=== PATIENT | female | born 1945 | race Caucasian/White ===

== ENCOUNTER 2016-12-24 11:07 | Emergency (ER) | payer OTHER, BC ==
[~2016-12-24] VITALS: Ht 157.5 cm; Wt 82.1 kg
[~2016-12-24 11:07] MED LIST: ATOR10TA88 PO; ESCI1TAB10 PO; MULT-506 PO; NXM/40 PO; OXYC1TAB3 PO
[2016-12-24 11:22] VITALS: TEMP 37
[2016-12-24] MEDS ORDERED: MECLIZINE HCL 25 MG TAB PO STA (11:36)
--- NOTE | 2016-12-24 11:49 | EMERGENCY ROOM VISIT NOTE ---
History Report prepared by Rehana: Brenda Newsome Under the Supervision of: Dr. Parveen Drake D.O. First contact with patient: 11:27 Chief Complaint: HEADACHE Stated Complaint: HUA, DIZZY, SHAKINESS IN STOMACH History of Present Illness The patient is a 71 year old female who presents to the Emergency Room with complaints of a persistent headache that began several days ago. The patient describes her headache as a squeezing headache. The patient states that in November she developed a head-cold that then traveled into her chest. She states that she was seen at [facility] two weeks ago and was placed on Tetracycline and Zinc Lozenges. The patient states that she had had dizziness at that time but thought it was related to her antibiotic usage. She states that she ended her antibiotics on and states that her dizziness worsened. The patient states that she first would notice her dizziness later in the day, but states that now she is experiencing it as soon as she wakes. She states that she has been experiencing nervousness and jitteriness. The patient reports a history of migraines, but states that her headache and symptoms feel different than her previous migraines. She states that she was evaluated at [facility] again yesterday and had a normal EKG and normal orthostatic vital signs. The patient states that [facility] suggested that she come to the emergency department last evening but she decided not to. She states that she does follow with Cardiology every 6 months for a heart murmur. The patient states that since her dizziness worsened this morning she felt she should come in to the emergency department for further evaluation and treatment. She states that she has been using Flonase, thinking that she may have had sinus congestion. The patient reports a history of sinus issues, but denies any history of vertigo. She states that she always experiences ringing in her ears. The patient denies any chest pain, abdominal pain, or vomiting. Source of History: patient Onset: several days ago Position: head Quality: other (squeezing) Timing: other (persistent) Associated Symptoms: No chest pain, No vomiting, No abdominal pain Note: Associated Symptoms: dizziness, nervousness, jitteriness Review of Systems See HPI for pertinent positives & negatives. A total of 10 systems reviewed and were otherwise negative. Past Medical & Surgical Medical Problems: (1) Dodson's palsy (2) Bronchitis (3) Heart murmur (4) Melanoma (5) Pneumonia Surgical Problems: (1) H/O dilation and curettage (2) H/O foot surgery (3) History of appendectomy (4) History of tonsillectomy Family History Cancer Diabetes mellitus Gallbladder disease Heart disease Liver disease Social History Smoking Status: Former Smoker Smokeless Tobacco Use: No Alcohol Use: occasionally Marital Status: Housing Status: lives with significant other Occupation Status: retired Current/Historical Medications Scheduled Ascorbic Acid (Ascorbic Acid), 500 MG PO DAILY Biotin (Biotin), 5,000 MCG PO DAILY Cholecalciferol (Vitamin D3), 2,000 UNITS PO DAILY Choline Fenofibrate (Fenofibric Acid Dr), 135 MG PO QAM Cyanocobalamin (Vitamin B-12), 1,000 MCG PO DAILY Dexlansoprazole (Dexilant), 60 MG PO DAILY Fish Oil ([place] [address]-3), 1,200 MG PO DAILY Linaclotide (Linzess), 145 MCG PO DAILY Magnesium Oxide (Mg Supplement (Magnesium), 500 MG PO DAILY Multiple Vitamins W/ Minerals (Centrum Silver 50+Women), 1 TAB PO DAILY Ropinirole (Requip), 1 MG PO HS Simvastatin (Zocor), 20 MG PO QPM Temazepam (Restoril), 15 MG PO HS Scheduled PRN Meclizine Hcl (Meclizine Hcl), 1 TAB PO TID PRN for Dizziness or Vertigo Miscellaneous Medications Acetaminophen (Tylenol), 500 MG PO Allergies Coded Allergies: Niacin (Unverified Allergy, Unknown, flushed/hot, 12/24/16) Physical Exam Vital Signs Date Time Temp Pulse Resp B/P (MAP) Pulse Ox O2 Delivery O2 Flow Rate FiO2 12/24/16 13:57 60 18 139/80 100 Room Air 12/24/16 12:00 56 12/24/16 11:59 97 Room Air 12/24/16 11:59 65 16 143/79 97 Room Air 68 143/78 76 132/74 12/24/16 11:22 37.0 72 20 109/68 97 Room Air Physical Exam GENERAL: Patient is awake, alert, and in no acute distress. Patient is resting comfortably and showing no signs of anxiety EYES: The conjunctivae are clear. The pupils are round and reactive. EARS, NOSE, MOUTH AND THROAT: The nose is without any evidence of any deformity. Mucous membranes are moist tongue is midline NECK: The neck is nontender and supple. RESPIRATORY: Normal respiratory effort is noted there is no evidence of wheezing rhonchi or rales CARDIOVASCULAR: Regular rate and rhythm noted, systolic murmur was appreciated. GASTROINTESTINAL: The abdomen is soft. Bowel sounds are present in all quadrants. Abdomen is nontender MUSCULOSKELETAL/EXTREMITIES: There is no evidence of gross deformity full range of motion is noted in the hips and shoulders SKIN: There is no obvious evidence of any rash. There are no petechiae, pallor or cyanosis noted. NEUROLOGIC: Patient is awake alert and oriented x3 strength is symmetric patellar reflexes are 2+ bilaterally Medical Decision & Procedures ER Provider Diagnostic Interpretation: Radiology results as stated below per my review and radiologist interpretation: HEAD WITHOUT CONTRAST (CT) CT DOSE: 679.75 mGycm HISTORY: Mental status change EVALUATE ALTERED MENTAL STATUS/WEAKNESS TECHNIQUE: Multiaxial CT images of the head were performed without the use of intravenous contrast. A dose lowering technique was utilized adhering to the principles of ALARA. Comparison: None. Findings: The paranasal sinuses and mastoid air cells are clear. The calvarium and skull base are intact. The ventricles and sulci are within normal limits. There is no mass, hematoma, midline shift, or acute infarct. Impression: No acute intracranial abnormality. The above report was generated using voice recognition software. It may contain grammatical, syntax or spelling errors. Electronically signed by: Messi Reece M.D. 12/24/2016 12:26 PM Dictated Date/Time: 12/24/2016 12:24 PM CHEST ONE VIEW PORTABLE CLINICAL HISTORY: Altered mental status. Weakness. Headache. COMPARISON STUDY: No previous studies for comparison. FINDINGS: The heart is mildly enlarged. There is no focal pulmonary consolidation. There is no overt failure. There are no pleural effusions.[ IMPRESSION: No active disease in the chest. Electronically signed by: Mukund Faith M.D. 12/24/2016 12:16 PM Dictated Date/Time: 12/24/2016 12:15 PM Laboratory Results 12/24/16 11:46 Red Blood Count 3.74, Mean Corpuscular Volume 89.6, Mean Corpuscular Hemoglobin 29.1, Mean Corpuscular Hemoglobin Concent 32.5, Mean Platelet Volume 11.1, Neutrophils (%) (Auto) 45.7, Lymphocytes (%) (Auto) 38.1, Monocytes (%) (Auto) 11.9, Eosinophils (%) (Auto) 3.1, Basophils (%) (Auto) 0.9, Neutrophils # (Auto ) 2.64, Lymphocytes # (Auto) 2.20, Monocytes # (Auto) 0.69, Eosinophils # (Auto ) 0.18, Basophils # (Auto) 0.05 12/24/16 11:46 Test 12/24/16 11:46 12/24/16 12:32 White Blood Count 5.78 K/uL (4.8-10.8) Red Blood Count 3.74 M/uL (4.2-5.4) Hemoglobin 10.9 g/dL (12.0-16.0) Hematocrit 33.5 % (37-47) Mean Corpuscular Volume 89.6 fL (80-100) Mean Corpuscular Hemoglobin 29.1 pg (25-34) Mean Corpuscular Hemoglobin Concent 32.5 g/dl (32-36) Platelet Count 177 K/uL (130-400) Mean Platelet Volume 11.1 fL (7.4-10.4) Neutrophils (%) (Auto) 45.7 % Lymphocytes (%) (Auto) 38.1 % Monocytes (%) (Auto) 11.9 % Eosinophils (%) (Auto) 3.1 % Basophils (%) (Auto) 0.9 % Neutrophils # (Auto) 2.64 K/uL (1.4-6.5) Lymphocytes # (Auto) 2.20 K/uL (1.2-3.4) Monocytes # (Auto) 0.69 K/uL (0.11-0.59) Eosinophils # (Auto) 0.18 K/uL (0-0.5) Basophils # (Auto) 0.05 K/uL (0-0.2) RDW Standard Deviation 47.2 fL (36.4-46.3) RDW Coefficient of Variation 14.4 % (11.5-14.5) Immature Granulocyte % (Auto) 0.3 % Immature Granulocyte # (Auto) 0.02 K/uL (0.00-0.02) Prothrombin Time 10.4 SECONDS (9.0-12.0) Prothromb Time International Ratio 1.0 (0.9-1.1) Activated Partial Thromboplast Time 25.7 SECONDS (21.0-31.0) Partial Thromboplastin Ratio 1.0 Anion Gap 8.0 mmol/L (3-11) Est Creatinine Clear Calc Drug Dose 41.5 ml/min Estimated GFR () 51.9 Estimated GFR (Non- 44.8 BUN/Creatinine Ratio 14.8 (10-20) Calcium Level 9.0 mg/dl (8.5-10.1) Magnesium Level 2.1 mg/dl (1.8-2.4) Total Bilirubin 0.2 mg/dl (0.2-1) Direct Bilirubin < 0.1 mg/dl (0-0.2) Aspartate Amino Transf (AST/SGOT) 17 U/L (15-37) Alanine Aminotransferase (ALT/SGPT) 22 U/L (12-78) Alkaline Phosphatase 54 U/L (45-117) Troponin I < 0.015 ng/ml (0-0.045) Total Protein 7.3 gm/dl (6.4-8.2) Albumin 3.7 gm/dl (3.4-5.0) Lipase 372 U/L (73-393) Thyroid Stimulating Hormone (TSH) 1.350 uIu/ml (0.300-4.500) Urine Color YELLOW Urine Appearance CLEAR (CLEAR) Urine pH 6.5 (4.5-7.5) Urine Specific [place] 1.011 (1.000-1.030) Urine Protein NEG (NEG) Urine Glucose (UA) NEG (NEG) Urine Ketones NEG (NEG) Urine Occult Blood NEG (NEG) Urine Nitrite NEG (NEG) Urine Bilirubin NEG (NEG) Urine Urobilinogen NEG (NEG) Urine Leukocyte Esterase TRACE (NEG) Urine WBC (Auto) 1-5 /hpf (0-5) Urine RBC (Auto) 0-4 /hpf (0-4) Urine Hyaline Casts (Auto) 0 /lpf (0-5) Urine Epithelial Cells (Auto) 0-5 /lpf (0-5) Urine Bacteria (Auto) NEG (NEG) Laboratory results per my review. Medications Administered Medications (Trade) Dose Ordered Sig/Liliana Route Start Time Stop Time Status Last Admin Dose Admin Meclizine HCl (Antivert Tab) 25 mg NOW STAT PO 12/24/16 11:36 12/24/16 11:37 DC 12/24/16 12:02 25 MG ECG Indication: other (dizziness) Rate (beats per minute): 63 Rhythm: normal sinus Findings: no acute ischemic change, no ectopy, other (LVH by voltage criteria) Comparison ECG Date: no prior available ED Course 1127: The patient was evaluated in room C2B. A complete history and physical examination were performed. 1136: Ordered Antivert 25 mg PO. Medical Decision Differential diagnosis: Etiologies such as benign positional vertigo, dehydration, hypovolemia, anemia, tumor, infection, hypoglycemia, electrolyte abnormalities, cardiac sources, intracerebral event, toxicologic, neurologic, as well as others were entertained. Nursing notes reviewed. The patient is a 71-year-old female who presented to the emergency department for an evaluation of dizziness. The patient was recently seen at [facility] and she was instructed to go to the emergency department. She did not wish to go to the emergency department at that time but she presented today for ongoing symptoms. The patient does not have any focal neurologic deficits. The patient was treated with Antivert in the emergency department. She was able to ambulate without difficulty. I discussed the patient's laboratory and radiographic studies with her. I discussed some of the causes of vertigo. She was encouraged to rest and avoid any strenuous activity. She was encouraged to continue all medications as prescribed. She was also encouraged to return to the emergency apartment immediately if symptoms change worsen or the need arises. I discussed her case with the emergency department shoe parts caser. We were unable to get the patient an appointment with a primary care physician for further follow-up. Head Trauma GCS Score: 15 Medication Reconcilliation Current Medication List: was personally reviewed by me Blood Pressure Screening Patient's blood pressure: Elevated blood pressure Blood pressure disposition: Elevated BP felt to be situational, Did not require urgent referral Impression Primary Impression: Vertigo Additional Impression: Headache Scribe Attestation The scribe's documentation has been prepared under my direction and personally reviewed by me in its entirety. I confirm that the note above accurately reflects all work, treatment, procedures, and medical decision making performed by me. Departure Information Prescriptions Meclizine Hcl (MECLIZINE HCL) 25 Mg Tab 1 TAB PO TID Y for Dizziness or Vertigo for 10 Days, #30 TAB Prov: Parveen Drake DO 12/24/16 Referrals No Doctor, Assigned (PCP) Patient Instructions My [facility] Problem Qualifiers Additional Impression: Headache Headache type: unspecified Headache chronicity pattern: unspecified pattern Intractability: not intractable Qualified Codes: R51 - Headache
[2016-12-24] MEDS ORDERED: ASCO500T16 PO (11:55)
[2016-12-24] MEDS ORDERED: SIMV20TA2 PO (11:55)
[2016-12-24] MEDS ORDERED: LINA1CAP PO (11:55)
[2016-12-24] MEDS ORDERED: DEXL60CA4 PO (11:55)
[2016-12-24] MEDS ORDERED: CHOL20007 PO (11:55)
[2016-12-24] MEDS ORDERED: BIOT1CAP3 PO (11:55)
[2016-12-24] MEDS ORDERED: MULT-1092 PO (11:55)
[2016-12-24] MEDS ORDERED: CHOL1CAP63 PO (11:55)
[2016-12-24] MEDS ORDERED: ROPI1TAB PO (11:55)
[2016-12-24] MEDS ORDERED: OMEG10007 PO (11:55)
[2016-12-24] MEDS ORDERED: CYAN10005 PO (11:55)
[2016-12-24] MEDS ORDERED: MAGN500T4 PO (11:55)
[2016-12-24] MEDS ORDERED: TEMA15CA4 PO (11:55)
[2016-12-24] MEDS ORDERED: ACET-1256 PO (11:55)
[2016-12-24 11:59] VITALS: O2SAT 97; Ht 157.5 cm; Wt 82.1 kg
[2016-12-24 12:06] LABS: BASO % 0.9 %; BASO ABS # 0.05 K/uL (0-0.2); COMPLETE YES; EOS % 3.1 %; HEMATOCRIT 33.5 % (37-47); IG% 0.3 %; LYMPH % 38.1 %; MEAN CELL VOLUME 89.6 fL (80-100); MEAN CORPUSCULAR HEMOGLOBIN 29.1 pg (25-34); MEAN CORPUSCULAR HGB CONC 32.5 g/dl (32-36); MEAN PLATELET VOLUME 11.1 fL (7.4-10.4); MONO % 11.9 %; NEUT % 45.7 %; PLATELET COUNT 177 K/uL (130-400); RED BLOOD COUNT 3.74 M/uL (4.2-5.4); WHITE BLOOD COUNT 5.78 K/uL (4.8-10.8)
--- NOTE | 2016-12-24 12:17 | DIAGNOSTIC IMAGING REPORT ---
CHEST ONE VIEW PORTABLE CLINICAL HISTORY: Altered mental status. Weakness. Headache. COMPARISON STUDY: No previous studies for comparison. FINDINGS: The heart is mildly enlarged. There is no focal pulmonary consolidation. There is no overt failure. There are no pleural effusions.[ IMPRESSION: No active disease in the chest. Electronically signed by: Mukund Faith M.D. 12/24/2016 12:16 PM Dictated Date/Time: 12/24/2016 12:15 PM
[2016-12-24 12:18] LABS: PROTHROMBIN TIME (PATIENT) 10.4 SECONDS (9.0-12.0)
[2016-12-24 12:22] LABS: ALT/SGPT 22 U/L (12-78); BLOOD UREA NITROGEN 18 mg/dl (7-18); BUN/CREATININE RATIO 14.8 (10-20); CARBON DIOXIDE 25 mmol/L (21-32); CHLORIDE 109 mmol/L (98-107); GLUCOSE 95 mg/dl (70-99); MAGNESIUM 2.1 mg/dl (1.8-2.4); POTASSIUM 4.2 mmol/L (3.5-5.1); SODIUM 142 mmol/L (136-145)
--- NOTE | 2016-12-24 12:27 | DIAGNOSTIC IMAGING REPORT ---
HEAD WITHOUT CONTRAST (CT) CT DOSE: 679.75 mGycm HISTORY: Mental status change EVALUATE ALTERED MENTAL STATUS/WEAKNESS TECHNIQUE: Multiaxial CT images of the head were performed without the use of intravenous contrast. A dose lowering technique was utilized adhering to the principles of ALARA. Comparison: None. Findings: The paranasal sinuses and mastoid air cells are clear. The calvarium and skull base are intact. The ventricles and sulci are within normal limits. There is no mass, hematoma, midline shift, or acute infarct. Impression: No acute intracranial abnormality. The above report was generated using voice recognition software. It may contain grammatical, syntax or spelling errors. Electronically signed by: Messi Reece M.D. 12/24/2016 12:26 PM Dictated Date/Time: 12/24/2016 12:24 PM
[2016-12-24 12:33] LABS: ALKALINE PHOSPHATASE 54 U/L (45-117); AST/SGOT 17 U/L (15-37)
[2016-12-24 13:18] LABS: URINE APPEARANCE CLEAR (CLEAR); URINE BILIRUBIN NEG (NEG); URINE COLOR YELLOW; URINE EPITHELIAL CELL AUTO 0-5 /lpf (0-5); URINE NITRITE NEG (NEG); URINE PH 6.5 (4.5-7.5); URINE SPECIFIC GRAVITY 1.011 (1.000-1.030); UROBILINOGEN NEG (NEG)
[2016-12-24 13:24] LABS: MANUAL MICROSCOPIC REQUIRED? NO; REVIEW REQ? NO
[2016-12-24] MEDS ORDERED: MECL1TAB42 PO (13:45)
[2016-12-24 13:57] VITALS: BP 139/80; PULSE 60; O2SAT 100
== END 2016-12-24 14:16 | disposition home or self-care (01) ==
LOC: C.EDB 11:08 → C.EDC 14:16
DX: R42 Dizziness and giddiness (principal); R51 Headache; G51.0 Bell's palsy; Z79.899 Other long term (current) drug therapy; Z85.820 Personal history of malignant melanoma of skin; Z87.01 Personal history of pneumonia (recurrent); Z87.09 Personal history of other diseases of the respiratory system; Z87.891 Personal history of nicotine dependence; Z82.49 Family history of ischemic heart disease and other diseases of the circulatory system; Z83.3 Family history of diabetes mellitus; Z83.79 Family history of other diseases of the digestive system